=== PATIENT | female | born 1980 | race Caucasian/White ===

== ENCOUNTER 2017-04-28 08:21 | Inpatient (IN) | payer OTHER ==
[~2017-04-28] VITALS: Ht 180.3 cm; Wt 78.7 kg
[2017-04-28] MEDS ORDERED: LACTATED RINGERS 1,000 ML IV SCH ×2 (09:18→09:20)
[2017-04-28] MEDS ORDERED: OXYTOCIN 30U/ 0.9% NaCL 500ML 500 ML IV SCH (09:18)
[2017-04-28] MEDS ORDERED: NEWBORN KIT ONE (09:29)
[2017-04-28] MEDS ORDERED: PLEASE ENTER HEIGHT AND WEIGHT MC SCH (09:30)
[2017-04-28] MEDS ORDERED: LACTATED RINGERS 1,000 ML IVBOLUS ONE (09:30)
[2017-04-28] MEDS ORDERED: PLEASE ENTER ALLERGIES MC SCH ×4 (09:30→10:00)
[2017-04-28] MEDS ORDERED: SODIUM CITRATE/CITRIC ACID 30 ML UDC PO ONE (09:30)
[2017-04-28] MEDS ORDERED: METOCLOPRAMIDE 5 MG/ML, 2ML IV ONE (09:30)
[2017-04-28 09:49] VITALS: BP 129/76
[2017-04-28] MEDS ORDERED: SODIUM CITRATE/CITRIC ACID 30 ML UDC ONE (10:26)
[2017-04-28] MEDS ORDERED: METOCLOPRAMIDE 5 MG/ML, 2ML ONE (10:27)
[2017-04-28] MEDS ORDERED: OXYTOCIN 30U/ 0.9% NaCL 500ML 500 ML ONE (10:27)
[2017-04-28] MEDS ORDERED: EPHEDRINE 50 MG/ML, 1ML IVPush PRN (11:00)
[2017-04-28] MEDS ORDERED: OXYcodone 5 MG/5 ML ORAL.SOL UDC PO PRN (11:00)
[2017-04-28] MEDS ORDERED: FENTANYL PF 100 MCG/2ML IV PRN (11:00)
[2017-04-28] MEDS ORDERED: MEPERIDINE/PF 25MG/0.5ML IVPush PRN (11:00)
[2017-04-28] MEDS ORDERED: ONDANSETRON 2MG/ML, 2ML IVPush PRN (11:00)
[2017-04-28] MEDS: OXYTOCIN 30U/ 0.9% NaCL 500ML 500 ML IV SCH ×2 (11:03→21:03)
[2017-04-28] MEDS ORDERED: MISOPROSTOL 200 MCG TABLET PR PRN (11:30)
[2017-04-28] MEDS ORDERED: HYDROmorphone/PF 4 MG/ML, 1ML IM PRN (11:30)
[2017-04-28] MEDS ORDERED: RHOGAM FROM BLOOD BANK 1 NOTE EA IM/IV ONE (11:30)
[2017-04-28] MEDS ORDERED: ONDANSETRON 2MG/ML, 2ML IV PRN (11:30)
[2017-04-28] MEDS ORDERED: MEASLES,MUMPS&RUBELLA VACC/PF 0.5 ML SQ-VACC PRN (11:30)
[2017-04-28] MEDS ORDERED: DIPH,PERTUSS(ACELL),TET VAC/PF NC IM-VACC PRN (11:30)
[2017-04-28] MEDS ORDERED: MEPERIDINE/PF 50 MG/ML IM PRN (11:30)
[2017-04-28] MEDS ORDERED: morphine SULFATE 10 MG/ML, 1ML ONE (13:06)
[2017-04-28] MEDS: morphine SULFATE 10 MG/ML, 1ML IV PRN ×4 (13:10→13:28)
[2017-04-28] MEDS ORDERED: FENTANYL/BUPIV./NS/PF 250 ML EPIDCONT ONE (13:24)
[2017-04-28] MEDS ORDERED: LIDOCAINE/PF 1.5%-EPI 1:200K, 30ML ONE (13:24)
[2017-04-28 14:30] VITALS: BP 104/52
[2017-04-28] MEDS: KETOROLAC 30 MG/1 ML IV SCH ×2 (17:54→23:35)
[2017-04-28] MEDS: LACTATED RINGERS 1,000 ML IV SCH ×2 (19:03→23:51)
[2017-04-28 20:30] VITALS: BP 114/68
[2017-04-28] MEDS: OXYcodone IR 5MG TABLET PO PRN (22:15)
[2017-04-28 23:40] VITALS: BP 121/69
[2017-04-29] MEDS: OXYcodone IR 5MG TABLET PO PRN ×5 (02:33→21:06)
[2017-04-29] MEDS: LACTATED RINGERS 1,000 ML IV SCH ×3 (03:03→19:03)
[2017-04-29 04:35] VITALS: BP 116/69
[2017-04-29] MEDS: KETOROLAC 30 MG/1 ML IV SCH (05:43)
[2017-04-29] MEDS: OXYTOCIN 30U/ 0.9% NaCL 500ML 500 ML IV SCH ×2 (07:03→17:03)
[2017-04-29 07:30] VITALS: BP 111/70
[2017-04-29] MEDS: PRENATAL VIT/IRON/FA 1 EACH TABLET PO SCH (08:58)
[2017-04-29] MEDS: METHOCARBAMOL 750 MG TABLET PO PRN ×2 (08:58→17:31)
[2017-04-29] MEDS: DOCUSATE 100 MG CAPSULE PO PRN ×2 (08:58→21:06)
[2017-04-29 11:51] VITALS: BP 113/67
[2017-04-29] MEDS: IBUPROFEN 600 MG TABLET PO PRN ×3 (11:52→23:36)
[2017-04-29 21:50] VITALS: BP 118/70
[2017-04-30] MEDS: OXYcodone IR 5MG TABLET PO PRN ×4 (01:38→14:34)
[2017-04-30] MEDS: METHOCARBAMOL 750 MG TABLET PO PRN ×2 (01:42→10:27)
[2017-04-30] MEDS: LACTATED RINGERS 1,000 ML IV SCH (03:03)
[2017-04-30] MEDS: OXYTOCIN 30U/ 0.9% NaCL 500ML 500 ML IV SCH (03:03)
[2017-04-30] MEDS: IBUPROFEN 600 MG TABLET PO PRN ×2 (06:02→12:25)
[2017-04-30 07:30] VITALS: BP 120/53
[2017-04-30] MEDS: DOCUSATE 100 MG CAPSULE PO PRN (10:27)
[2017-04-30] MEDS: PRENATAL VIT/IRON/FA 1 EACH TABLET PO SCH (10:27)
[2017-04-30] MEDS ORDERED: METH750T87 PO (12:00)
[2017-04-30] MEDS ORDERED: IBUP-1222 PO (12:01)
[2017-04-30] MEDS ORDERED: OXYC-302 PO (12:01)
[2017-04-30] MEDS ORDERED: SENN1TAB7 PO (12:03)
== END 2017-04-30 16:13 | disposition home or self-care (01) | DRG 766 ==
LOC: LDIP 09:08 → 2NW 14:25
PROVIDERS: ADMIT Specialist; ATTEND Specialist
PROC: 10D00Z1 Extraction of Products of Conception, Low, Open Approach (ICD-10-PCS; principal; 2017-04-28)
DX: O34.211 Maternal care for low transverse scar from previous cesarean delivery (principal); Z37.0 Single live birth; Z3A.37 37 weeks gestation of pregnancy; Z80.8 Family history of malignant neoplasm of other organs or systems; Z82.49 Family history of ischemic heart disease and other diseases of the circulatory system; O09.523 Supervision of elderly multigravida, third trimester
CPT/HCPCS: 36415; 85025; 86850; 86900; J1885; J2270; J2590; J2765; J7120

== ENCOUNTER 2017-05-02 13:17 | Outpatient (CLI) | payer OTHER ==
[~2017-05-02] VITALS: Ht 180.3 cm; Wt 74.1 kg
[~2017-05-02 13:17] MED LIST: IBUP-1222 PO; METH750T87 PO; OXYC-302 PO; SENN1TAB7 PO
[2017-05-02 13:21] VITALS: BP 127/77
== END 2017-05-02 14:21 | disposition home or self-care (01) ==
LOC: LDOP 13:17
PROVIDERS: ATTEND Specialist
DX: Z02.9 Encounter for administrative examinations, unspecified (principal)

== ENCOUNTER 2017-05-03 04:29 | Emergency (ER) | payer OTHER ==
[~2017-05-03] VITALS: Ht 180.3 cm; Wt 74.4 kg
[2017-05-03] MEDS ORDERED: METHYLNALTREXONE 12 MG/0.6 ML SQ ONE (05:30)
[2017-05-03 05:58] VITALS: BP 104/52
== END 2017-05-03 07:16 | disposition home or self-care (01) ==
LOC: ED 05:11
DX: K59.00 Constipation, unspecified (principal)
CPT/HCPCS: 74020; 96372

== ENCOUNTER 2021-04-17 13:51 | Outpatient (CLI) | payer BC, OTHER ==
[~2021-04-17 13:51] MED LIST changes: -OXYC-302 PO; +OXYC1TAB14 PO; +SENN-177 PO; -SENN1TAB7 PO
== END 2021-04-17 23:59 | disposition home or self-care (01) ==
LOC: CFH 13:51
PROVIDERS: ATTEND Obstetrics & Gynecology Gynecology
DX: Z12.31 Encounter for screening mammogram for malignant neoplasm of breast (principal); Z12.39 Encounter for other screening for malignant neoplasm of breast
CPT/HCPCS: 76641; 77063; 77067